=== PATIENT | male | born 1960 | race Caucasian/White ===

== ENCOUNTER → 2019-09-28 | Emergency (ER) | payer MEDICARE ==
[~2019-09-28] VITALS: Ht 170.2 cm; Wt 104.9 kg
[~2019-09-28] MED LIST: ASPI-1264 PO; ATOR10TA OGT; DOCU100C40 PO; INDO-12 PO; METO25TA6 PO; PER10325T PO; RED600TA PO; VITC500T PO; acetaminophen 325mg tablet PO ONE; iohexol 350MG/ML 100ml bottle IV ONE; ketorolac tromethamine 15mg/ml inj. IV ONE
[2019-09-28 21:36] LABS: ALANINE AMINOTRANSFERASE 43 U/L (12-78); ALBUMIN 3.2 G/DL (3.4-5.0); ALBUMIN/GLOBULIN RATIO 0.7 (1.1-1.5); ALKALINE PHOSPHATASE 102 IU/L (46-116); ANION GAP 10 (8-16); ASPARTATE AMINO TRANSFERASE 33 U/L (10-37); BILIRUBIN,TOTAL 0.6 MG/DL (0.1-1.0); BLOOD UREA NITROGEN 18 MG/DL (7-18); BUN/CREATININE RATIO 11.8 (5.4-32.0); CALCIUM 8.6 MG/DL (8.5-10.1); CHLORIDE 102 MMOL/L (99-107); CREATININE 1.52 MG/DL (0.60-1.10); GLUCOSE 215 MG/DL (70-104); POTASSIUM 3.7 MMOL/L (3.5-5.1); SODIUM 138 MMOL/L (135-145); TOTAL CARBON DIOXIDE 26.5 MMOL/L (24-32); TOTAL PROTEIN 7.6 G/DL (6.4-8.2); eGFR 48 ML/MIN
[2019-09-28 21:40] LABS: BASOPHILS % (AUTO) 0.1 % (0-1); EOSINOPHILS % (AUTO) 0.3 % (0-6); HEMATOCRIT 41.5 % (42.0-52.0); HEMOGLOBIN 14.4 g/dl (14.0-17.9); LYMPHOCYTES % (AUTO) 14.7 % (21-51); MEAN CORPUSCULAR HEMOGLOBIN 32.4 PG (27.0-31.0); MEAN CORPUSCULAR HGB CONC 34.7 g/dL (33.0-36.5); MEAN CORPUSCULAR VOLUME 93.4 FL (78-98); MEAN PLATELET VOLUME 8.2 FL (7.4-10.4); MONOCYTES # (AUTO) 0.8 X10'3 (0-0.9); MONOCYTES % (AUTO) 11.9 % (2-12); NEUTROPHILS # (AUTO) 5.2 X10'3 (1.8-7.7); PLATELET COUNT 179 X10'3 (140-440); RED BLOOD COUNT 4.44 X10'6 (4.70-6.10); RED CELL DISTRIBUTION WIDTH 13.9 % (11.5-14.5); WHITE BLOOD COUNT 7.1 X10'3 (4.5-11.0)
[2019-09-28 23:00] VITALS: BP 125/70
== END | disposition home or self-care (01) ==
LOC: ER 19:46
DX: R07.89 Other chest pain (principal); E78.00 Pure hypercholesterolemia, unspecified; Z95.1 Presence of aortocoronary bypass graft; Z79.82 Long term (current) use of aspirin; Z79.899 Other long term (current) drug therapy
CPT/HCPCS: 36415; 71045; 71275; 80053; 84484; 85025; 93005; 96374; 99284; J1885; Q9967

== ENCOUNTER 2021-11-01 18:12 | Inpatient (IN) | payer MEDICARE, MEDICAID ==
[~2021-11-01] VITALS: Ht 170.2 cm; Wt 99.2 kg
[~2021-11-01 18:12] MED LIST changes: +LOP25T PO; -METO25TA6 PO; -acetaminophen 325mg tablet PO ONE; -iohexol 350MG/ML 100ml bottle IV ONE; -ketorolac tromethamine 15mg/ml inj. IV ONE; +sevoflurane 250ml liquid IH ONE
[2021-11-01] MEDS ORDERED: acetaminophen 325mg tablet PO ONE (19:10)
[2021-11-01] MEDS ORDERED: CefTRIAXone 2gm/D5W 50ml BAG 50 ML IV ONE (19:20)
[2021-11-01] MEDS ORDERED: normal saline 1000ML IV soln IV ONE (19:20)
[2021-11-01] MEDS ORDERED: ketorolac tromethamine 15mg/ml inj. IV ONE (19:25)
[2021-11-01 19:44] LABS: BASOPHILS % (AUTO) 0.3 % (0-1); EOSINOPHILS # (AUTO) 0.1 X10'3 (0-0.9); EOSINOPHILS % (AUTO) 0.7 % (0-6); HEMATOCRIT 43.2 % (42.0-52.0); HEMOGLOBIN 14.8 g/dl (14.0-17.9); LYMPHOCYTES # (AUTO) 0.5 X10'3 (1.1-4.8); LYMPHOCYTES % (AUTO) 4.6 % (21-51); MEAN CORPUSCULAR HEMOGLOBIN 31.4 PG (27.0-31.0); MEAN CORPUSCULAR HGB CONC 34.3 g/dL (33.0-36.5); MEAN CORPUSCULAR VOLUME 91.6 FL (78-98); MEAN PLATELET VOLUME 8.6 FL (7.4-10.4); MONOCYTES # (AUTO) 0.2 X10'3 (0-0.9); MONOCYTES % (AUTO) 1.8 % (2-12); NEUTROPHILS # (AUTO) 9.4 X10'3 (1.8-7.7); NEUTROPHILS % (AUTO) 92.6 % (42-75); PLATELET COUNT 91 X10'3 (140-440); RED BLOOD COUNT 4.72 X10'6 (4.70-6.10); RED CELL DISTRIBUTION WIDTH 14.2 % (11.5-14.5); WHITE BLOOD COUNT 10.2 X10'3 (4.5-11.0)
[2021-11-01 19:54] LABS: ALANINE AMINOTRANSFERASE 41 U/L (12-78); ALBUMIN 3.2 G/DL (3.4-5.0); ALBUMIN/GLOBULIN RATIO 0.6 (1.1-1.5); ALKALINE PHOSPHATASE 110 IU/L (46-116); ANION GAP 12 (8-16); BILIRUBIN,TOTAL 1.1 MG/DL (0.1-1.0); BLOOD UREA NITROGEN 54 MG/DL (7-18); BUN/CREATININE RATIO 17.9 (5.4-32.0); CALCIUM 8.7 MG/DL (8.5-10.1); CHLORIDE 97 MMOL/L (99-107); CREATININE 3.01 MG/DL (0.60-1.10); GLUCOSE 162 MG/DL (70-104); LIPASE < 50 U/L (73-393); SODIUM 132 MMOL/L (135-145); TOTAL CARBON DIOXIDE 23.3 MMOL/L (24-32); TOTAL PROTEIN 8.4 G/DL (6.4-8.2); eGFR 21 ML/MIN
[2021-11-01 19:56] LABS: ASPARTATE AMINO TRANSFERASE 71 U/L (10-37); POTASSIUM 4.8 MMOL/L (3.5-5.1)
[2021-11-01 20:25] LABS: CLARITY,URINE SLIGHTLY CLOUDY (Clear); GLUCOSE, URINE NEGATIVE (Neg); KETONES,URINE NEGATIVE (Neg); LEUKOCYTE ESTERASE ,URINE SMALL (Neg); NITRITES, URINE POSITIVE (Neg); OCCULT BLOOD,URINE LARGE (Neg); PH,URINE 5.5 (4.8-8.0); PROTEIN,URINE 100 mg/dl (Neg)
[2021-11-01 20:26] LABS: COLOR,URINE AMBER (Yellow); UA COLLECTION TYPE CLN CATCH MIDSTREAM
[2021-11-01 20:34] LABS: AMORPHOUS URATES 2+; BACTERIA,URINE 1+ /HPF (Neg); SQUAMOUS EPITHELIAL CELL,UR FEW /LPF (FEW)
[2021-11-01 20:35] LABS: WBC,URINE 30-50 /HPF (0-4)
[2021-11-01 20:37] LABS: COARSE GRANULAR CAST 0-3 /LPF (NEGATIVE); FINE GRANULAR CAST 0-3 /LPF (NEGATIVE)
[2021-11-01] MEDS ORDERED: potassium Cl 20 mEq SR tablet PO PRN ×2 (22:50)
[2021-11-01] MEDS: normal saline 1000ml 1,000 ML IV SCH (22:50)
[2021-11-01] MEDS ORDERED: magnesium Cl slow-release 64mg tablet PO PRN (22:50)
[2021-11-01] MEDS ORDERED: morphine 2 MG/ML inj. syringe IV PRN (22:50)
[2021-11-01] MEDS ORDERED: acetaminophen 325mg tablet PO PRN (22:50)
[2021-11-01] MEDS ORDERED: ondansetron 4mg rapidly disintigrating tab PO PRN (22:50)
[2021-11-01] MEDS ORDERED: magnesium 2GM in 50ml NS 50 ML IV PRN (22:50)
[2021-11-01] MEDS ORDERED: magnesium 4gm in 100ml NS 100 ML IV PRN (22:50)
[2021-11-01] MEDS ORDERED: potassium CL 10mEq/100ml bag 100 ML IV PRN (22:50)
[2021-11-01] MEDS ORDERED: ondansetron/PF 4mg/2ml inj IV PRN (22:50)
[2021-11-01] MEDS ORDERED: magnesium hydroxide 30ml (MOM) UD suspension PO PRN (22:50)
[2021-11-01] MEDS ORDERED: bisacodyl 10mg suppository rectal RC PRN (22:50)
[2021-11-02] VITALS (26 sets, daily range): BP systolic 97–152; BP diastolic 48–83
[2021-11-02] MEDS: HYDROcodone/acetaminophen 5mg/325mg tablet PO PRN (00:28)
[2021-11-02] MEDS ORDERED: ASPI-1053 PO (05:21)
[2021-11-02] MEDS ORDERED: SERT-434 PO (05:21)
--- NOTE | 2021-11-02 06:04 | NUR ---
PAGER ID: [phone] Dr. Davila MESSAGE: Tai Resendez in ER 1 septic kidney stone, has positive blood cultures. Anaerobic sample has gram neg rods. Cassidy LUKE [id number]
[2021-11-02] MEDS: docusate sod 100mg capsule PO SCH ×2 (08:00→19:55)
[2021-11-02] MEDS: CefTRIAXone/D5W-Rocephin 1gm 50 ML IV SCH (08:11)
[2021-11-02] MEDS: K and/or MAG REPLACEMENT MC SCH ×2 (08:12→20:00)
[2021-11-02 08:33] LABS: BASOPHILS % (AUTO) 0.4 % (0-1); EOSINOPHILS % (AUTO) 0.4 % (0-6); HEMATOCRIT 35.5 % (42.0-52.0); HEMOGLOBIN 12.3 g/dl (14.0-17.9); LYMPHOCYTES # (AUTO) 0.8 X10'3 (1.1-4.8); MEAN CORPUSCULAR HEMOGLOBIN 31.1 PG (27.0-31.0); MEAN CORPUSCULAR HGB CONC 34.8 g/dL (33.0-36.5); MEAN CORPUSCULAR VOLUME 89.4 FL (78-98); MONOCYTES # (AUTO) 0.4 X10'3 (0-0.9); NEUTROPHILS # (AUTO) 9.6 X10'3 (1.8-7.7); NEUTROPHILS % (AUTO) 88.2 % (42-75); PLATELET COUNT 63 X10'3 (140-440); RED BLOOD COUNT 3.97 X10'6 (4.70-6.10); RED CELL DISTRIBUTION WIDTH 14.6 % (11.5-14.5); WHITE BLOOD COUNT 10.9 X10'3 (4.5-11.0)
[2021-11-02 08:37] LABS: ALBUMIN 2.2 G/DL (3.4-5.0); ANION GAP 7 (8-16); BLOOD UREA NITROGEN 51 MG/DL (7-18); BUN/CREATININE RATIO 21.3 (5.4-32.0); CALCIUM 7.3 MG/DL (8.5-10.1); CHLORIDE 107 MMOL/L (99-107); GLUCOSE 155 MG/DL (70-104); MAGNESIUM 1.9 MG/DL (1.5-2.4); POTASSIUM 4.1 MMOL/L (3.5-5.1); SODIUM 138 MMOL/L (135-145); eGFR 28 ML/MIN
[2021-11-02] MEDS: normal saline 1000ml 1,000 ML IV SCH ×2 (08:47→18:50)
[2021-11-02] MEDS ORDERED: hydrALAZINE 20mg/ml inj. IV PRN (09:10)
[2021-11-02] MEDS ORDERED: labetalol 20mg/4ml (5mg/ml) syringe IV PRN (09:10)
[2021-11-02] MEDS ORDERED: morphine 2 MG/ML inj. syringe IV PRN ×2 (09:10→14:25)
[2021-11-02] MEDS ORDERED: morphine 4 MG/ML inj SYRINge IV PRN ×2 (09:10→14:25)
[2021-11-02] MEDS ORDERED: ringers solution, lacted 1,000 ML IV ONE (09:10)
[2021-11-02] MEDS ORDERED: ringers solution, lacted 1,000 ML IV SCH ×2 (09:10→14:25)
[2021-11-02] MEDS ORDERED: fentaNYL/PF 50MCG/1 ML 2ML syringe IV PRN ×2 (09:10)
[2021-11-02] MEDS ORDERED: ondansetron/PF 4mg/2ml inj IV PRN ×2 (09:10→14:25)
[2021-11-02 09:52] LABS: PLATELET ESTIMATE DECREASED; TOTAL CELLS COUNTED 100
[2021-11-02 09:53] LABS: ANISOCYTOSIS FEW; TOXIC GRANULATION 3+
[2021-11-02] MEDS: morphine 2 MG/ML inj. syringe IV PRN (10:56)
[2021-11-02] MEDS ORDERED: iohexol 300 MG/1 ML 50ml polymer ONE ×2 (11:03→13:07)
--- NOTE | 2021-11-02 11:13 | NUR ---
OR HERE TO TAKE PT
[2021-11-02] MEDS ORDERED: midazolam 1 mg/ML 2ml injection ONE (11:47)
[2021-11-02] MEDS ORDERED: fentaNYL/PF 50MCG/1 ML 2ML syringe ONE (11:47)
[2021-11-02] MEDS ORDERED: LIDOcaine 2% (20mg/ml) 5ml vial ONE (11:49)
[2021-11-02] MEDS ORDERED: rocuronium 10mg/ml inj IV ONE (11:49)
[2021-11-02] MEDS ORDERED: propofol inj 20 ML IV ONE (11:49)
[2021-11-02] MEDS ORDERED: iohexol 180mg/ml 20ml inj ONE (13:07)
[2021-11-02] MEDS ORDERED: sugammadex 200mg/2ml injection IV ONE (13:51)
--- NOTE | 2021-11-02 14:04 | NUR ---
Received from OR via , accompanied by Anesthesiologist DR CLARK and report given by Anesthesiolgist. PT PRESENTS WITH 20 G RIHT AC, PT SHIVERING UPPON ARIVAL, MONITOR PLACED WITH HR IN 140'S. DR CLARK NOTIFIED AND AT BEDSIDE TO [place] PT. DEMEROL AND BENADRYL GIVEN, SEE EMR. Addendum: 11/02/21 at 1451 by Brianna Rod RN, RN Amended: Links added.
[2021-11-02] MEDS ORDERED: meperidine/PF 25mg/ml syringe IV ONE ×2 (14:10→14:40)
[2021-11-02] MEDS ORDERED: diphenhydrAMINE 50 mg/ml inj ONE (14:19)
[2021-11-02] MEDS ORDERED: meperidine/PF 25mg/ml syringe IV PRN ×3 (14:25)
[2021-11-02] MEDS ORDERED: proCHLORperazine 10 MG/2 ml inj IV PRN (14:25)
--- NOTE | 2021-11-02 14:40 | NUR ---
PER DR CLARK PT TO GET 500ML BOLUS OF LR, HR 130'S Addendum: 11/02/21 at 1452 by Brianna Rod RN, RN Amended: Links added.
[2021-11-02 14:45] LABS: BASOPHILS % (AUTO) 0.6 % (0-1); EOSINOPHILS % (AUTO) 0.7 % (0-6); HEMATOCRIT 40.9 % (42.0-52.0); HEMOGLOBIN 13.8 g/dl (14.0-17.9); LYMPHOCYTES # (AUTO) 0.6 X10'3 (1.1-4.8); LYMPHOCYTES % (AUTO) 29.2 % (21-51); MEAN CORPUSCULAR HEMOGLOBIN 30.9 PG (27.0-31.0); MEAN CORPUSCULAR HGB CONC 33.8 g/dL (33.0-36.5); MEAN CORPUSCULAR VOLUME 91.4 FL (78-98); MONOCYTES % (AUTO) 1.4 % (2-12); NEUTROPHILS # (AUTO) 1.4 X10'3 (1.8-7.7); NEUTROPHILS % (AUTO) 68.1 % (42-75); PLATELET COUNT 64 X10'3 (140-440); RED BLOOD COUNT 4.47 X10'6 (4.70-6.10); RED CELL DISTRIBUTION WIDTH 15.1 % (11.5-14.5); WHITE BLOOD COUNT 2.1 X10'3 (4.5-11.0)
[2021-11-02 15:02] LABS: ALANINE AMINOTRANSFERASE 30 U/L (12-78); ALBUMIN 2.6 G/DL (3.4-5.0); ALBUMIN/GLOBULIN RATIO 0.6 (1.1-1.5); ALKALINE PHOSPHATASE 105 IU/L (46-116); ANION GAP 7 (8-16); ASPARTATE AMINO TRANSFERASE 42 U/L (10-37); BILIRUBIN,TOTAL 0.7 MG/DL (0.1-1.0); BLOOD UREA NITROGEN 49 MG/DL (7-18); BUN/CREATININE RATIO 21.1 (5.4-32.0); CHLORIDE 107 MMOL/L (99-107); CREATININE 2.32 MG/DL (0.60-1.10); GLUCOSE 112 MG/DL (70-104); POTASSIUM 4.7 MMOL/L (3.5-5.1); SODIUM 139 MMOL/L (135-145); TOTAL CARBON DIOXIDE 24.7 MMOL/L (24-32); TOTAL PROTEIN 7.2 G/DL (6.4-8.2); eGFR 29 ML/MIN
[2021-11-02 15:34] LABS: TOTAL CELLS COUNTED 100
[2021-11-02 15:35] LABS: PLATELET ESTIMATE DECREASED
--- NOTE | 2021-11-02 18:54 | NUR ---
Report called to receiving nurse OLVIN LUKE. Transferred via GURNEY TO [address] WITH BAGS OF PT BELONGINGS. Special Issues communicated to receiving nurse. Addendum: 11/02/21 at 1859 by Brianna Rod RN, RN Amended: Links added.
[2021-11-02] MEDS ORDERED: FLU VACC QS2021-22(6MOS UP)/PF 60 MCG/0.5 ML SYRINGE IM ONE (20:25)
[2021-11-03] VITALS: BP 102/58
[2021-11-03] MEDS: normal saline 1000ml 1,000 ML IV SCH ×2 (02:58→15:03)
[2021-11-03] MEDS ORDERED: famotidine 20mg tablet PO ONE (06:00)
[2021-11-03 06:13] LABS: BASOPHILS % (AUTO) 0.1 % (0-1); EOSINOPHILS % (AUTO) 0.4 % (0-6); HEMATOCRIT 34.4 % (42.0-52.0); HEMOGLOBIN 11.6 g/dl (14.0-17.9); LYMPHOCYTES # (AUTO) 0.6 X10'3 (1.1-4.8); LYMPHOCYTES % (AUTO) 8.6 % (21-51); MEAN CORPUSCULAR HEMOGLOBIN 30.5 PG (27.0-31.0); MEAN CORPUSCULAR HGB CONC 33.7 g/dL (33.0-36.5); MEAN CORPUSCULAR VOLUME 90.7 FL (78-98); MEAN PLATELET VOLUME 9.5 FL (7.4-10.4); MONOCYTES # (AUTO) 0.5 X10'3 (0-0.9); NEUTROPHILS # (AUTO) 5.7 X10'3 (1.8-7.7); NEUTROPHILS % (AUTO) 83.9 % (42-75); PLATELET COUNT 52 X10'3 (140-440); RED BLOOD COUNT 3.79 X10'6 (4.70-6.10); RED CELL DISTRIBUTION WIDTH 15.1 % (11.5-14.5); WHITE BLOOD COUNT 6.8 X10'3 (4.5-11.0)
[2021-11-03 06:16] LABS: ANION GAP 7 (8-16); BLOOD UREA NITROGEN 41 MG/DL (7-18); BUN/CREATININE RATIO 20.9 (5.4-32.0); CALCIUM 7.6 MG/DL (8.5-10.1); CHLORIDE 108 MMOL/L (99-107); CREATININE 1.96 MG/DL (0.60-1.10); GLUCOSE 140 MG/DL (70-104); MAGNESIUM 2.1 MG/DL (1.5-2.4); POTASSIUM 4.5 MMOL/L (3.5-5.1); SODIUM 138 MMOL/L (135-145); TOTAL CARBON DIOXIDE 22.7 MMOL/L (24-32); eGFR 35 ML/MIN
[2021-11-03] MEDS: HYDROcodone/acetaminophen 5mg/325mg tablet PO PRN ×3 (06:45→19:31)
--- NOTE | 2021-11-03 06:46 | NUR ---
Patient in room [facility]. I have received report from Lani LUKE Traveler and had the opportunity to ask questions and assume patient care.
[2021-11-03] MEDS: morphine 2 MG/ML inj. syringe IV PRN (06:50)
[2021-11-03 07:00] VITALS: BP 100/57
[2021-11-03] MEDS: docusate sod 100mg capsule PO SCH ×2 (08:00→19:30)
[2021-11-03] MEDS: K and/or MAG REPLACEMENT MC SCH ×2 (08:00→20:00)
[2021-11-03] MEDS: tamsulosin 0.4mg capsule PO SCH (08:04)
[2021-11-03] MEDS: oxybutynin 5mg tablet PO PRN (08:04)
[2021-11-03] MEDS: CefTRIAXone/D5W-Rocephin 1gm 50 ML IV SCH (08:05)
[2021-11-03] MEDS ORDERED: FLU VACC QS2021-22(6MOS UP)/PF 60 MCG/0.5 ML SYRINGE IM ONE (10:00)
[2021-11-03 11:00] VITALS: BP 109/62
[2021-11-03] MEDS ORDERED: ATOR40TA72 PO (11:01)
[2021-11-03] MEDS ORDERED: METF-900 PO (11:01)
[2021-11-03] MEDS ORDERED: LISI10TA27 PO (11:01)
[2021-11-03] MEDS: phenazopyridine 100mg tablet PO PRN (12:59)
--- NOTE | 2021-11-03 18:11 | NUR ---
Problems reprioritized. Patient report given, questions answered & plan of care reviewed with Nunu Licea Traveler.
[2021-11-03] MEDS: lisinopril 10 MG tablet PO SCH (18:15)
[2021-11-03 20:00] VITALS: BP 102/58
[2021-11-04] VITALS: BP 103/48
--- NOTE | 2021-11-04 00:10 | NUR ---
Student documentation: I have reviewed interventions, assessments performed and documented by CHARLES Black [facility].
[2021-11-04] MEDS: normal saline 1000ml 1,000 ML IV SCH (01:00)
[2021-11-04 06:02] LABS: BASOPHILS % (AUTO) 0.1 % (0-1); EOSINOPHILS % (AUTO) 0.6 % (0-6); HEMATOCRIT 34.1 % (42.0-52.0); HEMOGLOBIN 11.4 g/dl (14.0-17.9); LYMPHOCYTES # (AUTO) 0.6 X10'3 (1.1-4.8); LYMPHOCYTES % (AUTO) 11.7 % (21-51); MEAN CORPUSCULAR HEMOGLOBIN 30.5 PG (27.0-31.0); MEAN CORPUSCULAR HGB CONC 33.5 g/dL (33.0-36.5); MEAN CORPUSCULAR VOLUME 91.2 FL (78-98); MEAN PLATELET VOLUME 9.9 FL (7.4-10.4); MONOCYTES # (AUTO) 0.6 X10'3 (0-0.9); MONOCYTES % (AUTO) 11.8 % (2-12); NEUTROPHILS # (AUTO) 3.8 X10'3 (1.8-7.7); NEUTROPHILS % (AUTO) 75.8 % (42-75); PLATELET COUNT 72 X10'3 (140-440); RED BLOOD COUNT 3.74 X10'6 (4.70-6.10); RED CELL DISTRIBUTION WIDTH 15.5 % (11.5-14.5); WHITE BLOOD COUNT 5.1 X10'3 (4.5-11.0)
[2021-11-04] MEDS: HYDROcodone/acetaminophen 5mg/325mg tablet PO PRN (06:04)
[2021-11-04 06:34] LABS: ALBUMIN 1.9 G/DL (3.4-5.0); ANION GAP 7 (8-16); BLOOD UREA NITROGEN 31 MG/DL (7-18); BUN/CREATININE RATIO 22.5 (5.4-32.0); CALCIUM 7.2 MG/DL (8.5-10.1); CHLORIDE 111 MMOL/L (99-107); CREATININE 1.38 MG/DL (0.60-1.10); GLUCOSE 105 MG/DL (70-104); MAGNESIUM 2.2 MG/DL (1.5-2.4); POTASSIUM 4.6 MMOL/L (3.5-5.1); SODIUM 140 MMOL/L (135-145); TOTAL CARBON DIOXIDE 21.8 MMOL/L (24-32); eGFR 53 ML/MIN
--- NOTE | 2021-11-04 06:49 | NUR ---
Patient in room [facility]. I have received report from Nunu LUKE and had the opportunity to ask questions and assume patient care.
[2021-11-04] MEDS ORDERED: acetaminophen 325mg tablet PO PRN (07:45)
[2021-11-04] MEDS ORDERED: sertraline 50mg tablet PO SCH (08:00)
[2021-11-04] MEDS ORDERED: atorvastatin 20mg tablet PO SCH (08:00)
[2021-11-04] MEDS: tamsulosin 0.4mg capsule PO SCH (08:30)
[2021-11-04] MEDS: docusate sod 100mg capsule PO SCH (08:30)
[2021-11-04] MEDS: lisinopril 10 MG tablet PO SCH (08:32)
[2021-11-04] MEDS: phenazopyridine 100mg tablet PO PRN (08:33)
[2021-11-04] MEDS: oxybutynin 5mg tablet PO PRN (08:33)
[2021-11-04] MEDS: CefTRIAXone/D5W-Rocephin 1gm 50 ML IV SCH (09:15)
[2021-11-04] MEDS ORDERED: tamsulosin capsule PO (09:52)
[2021-11-04] MEDS ORDERED: LEVO500T90 PO (09:52)
[2021-11-04 10:38] VITALS: BP 106/58
[2021-11-04] MEDS ORDERED: PHEN-786 PO (11:26)
[2021-11-04] MEDS ORDERED: OXYB5TAB16 PO (11:26)
[2021-11-04] MEDS ORDERED: HYDR-3964 PO (11:26)
--- NOTE | 2021-11-04 13:30 | NUR ---
pt Dc to home with . Pt is A & O x4 and in no apparent distress. pt verbalizes understanding of all DC orders. pt educated on DM, respiratory issues ( need a c-pap), O2 usage for night use. pt is to follow up with PCP in [address] Eason in 10 days. Pt DC with PO antibiotics since he is positive for MDRO in blood and urine. pt able to get dressed and packed his belongings. DC orders given to as well over the phone. Pt ask many questions and was happy to learn more. many printout given on education for many issues. Pt wheeled to the front where pick him up.
[2021-11-04] MEDS ORDERED: lactobacillus rhamnosus 10,000 MMU CELLS/CAPSULE PO SCH (20:00)
== END 2021-11-04 13:25 | disposition home or self-care (01) | DRG 853 ==
LOC: ER 18:12 → ED HOLD 22:48 → EDBEDREQSVC 11-02 04:23 → SUR 3N 11-02 19:00
PROVIDERS: ADMIT Internal Medicine; ATTEND Internal Medicine
PROC: BT141ZZ Fluoroscopy of Kidneys, Ureters and Bladder using Low Osmolar Contrast (ICD-10-PCS; 2021-11-02)
PROC: 3E02340 Introduction of Influenza Vaccine into Muscle, Percutaneous Approach (ICD-10-PCS; 2021-11-02)
PROC: 0T788DZ Dilation of Bilateral Ureters with Intraluminal Device, Via Natural or Artificial Opening Endoscopic (ICD-10-PCS; principal; 2021-11-02 13:05)
DX: A41.9 Sepsis, unspecified organism (principal); N17.0 Acute kidney failure with tubular necrosis; N13.6 Pyonephrosis; D61.818 Other pancytopenia; Z20.822 Contact with and (suspected) exposure to COVID-19; E78.00 Pure hypercholesterolemia, unspecified; M10.9 Gout, unspecified; K21.9 Gastro-esophageal reflux disease without esophagitis; E78.5 Hyperlipidemia, unspecified; I25.10 Atherosclerotic heart disease of native coronary artery without angina pectoris; R65.20 Severe sepsis without septic shock; Z82.0 Family history of epilepsy and other diseases of the nervous system; Z95.1 Presence of aortocoronary bypass graft; Z23 Encounter for immunization; Z82.49 Family history of ischemic heart disease and other diseases of the circulatory system; Z79.899 Other long term (current) drug therapy
CPT/HCPCS: 36415; 71045; 74176; 74420; 76000; 80048; 80053; 81001; 82948; 83605; 83690; 83735; 84145; 85007; 85025; 87040; 87077; 87081; 87088; 87186; 87635; 93005; 96365; 96366; 96375; 99285; A4618; C1758; C1769; C2617; G0378; J0696; J1200; J1885; J2175; J2250; J2270; J2405; J2704; J3010; J3490; J7030; J7120; Q9965; Q9967

== ENCOUNTER 2022-12-29 08:42 | Day surgery (SDC) | payer BC, MEDICAID ==
[2022-12-28 14:32] LABS: BASOPHILS # (AUTO) 0.1 X10'3 (0-0.2); BASOPHILS % (AUTO) 1.2 % (0-1); EOSINOPHILS # (AUTO) 0.2 X10'3 (0-0.9); EOSINOPHILS % (AUTO) 4.5 % (0-6); HEMATOCRIT 45.4 % (42.0-52.0); HEMOGLOBIN 15.2 g/dl (14.0-17.9); LYMPHOCYTES # (AUTO) 1.6 X10'3 (1.1-4.8); MEAN CORPUSCULAR HEMOGLOBIN 30.7 PG (27.0-31.0); MEAN CORPUSCULAR HGB CONC 33.6 g/dL (33.0-36.5); MEAN CORPUSCULAR VOLUME 91.6 FL (78-98); MEAN PLATELET VOLUME 7.5 FL (7.4-10.4); MONOCYTES # (AUTO) 0.5 X10'3 (0-0.9); MONOCYTES % (AUTO) 8.8 % (2-12); NEUTROPHILS # (AUTO) 2.9 X10'3 (1.8-7.7); NEUTROPHILS % (AUTO) 54.5 % (42-75); PLATELET COUNT 163 X10'3 (140-440); RED BLOOD COUNT 4.95 X10'6 (4.70-6.10); RED CELL DISTRIBUTION WIDTH 14.9 % (11.5-14.5); WHITE BLOOD COUNT 5.3 X10'3 (4.5-11.0)
[2022-12-28 14:39] LABS: ANION GAP 7 (8-16); BLOOD UREA NITROGEN 10 MG/DL (7-18); BUN/CREATININE RATIO 9.8 (10.0-20.0); CHLORIDE 104 MMOL/L (99-107); CREATININE 1.02 MG/DL (0.60-1.10); GLUCOSE 106 MG/DL (70-104); POTASSIUM 4.1 MMOL/L (3.5-5.1); SODIUM 140 MMOL/L (135-145); TOTAL CARBON DIOXIDE 29.5 MMOL/L (24-32); eGFR 74 ML/MIN
[2022-12-28 14:43] LABS: APTT 25 SECONDS (22-32)
[2022-12-29] VITALS (10 sets, daily range): BP systolic 114–136; BP diastolic 49–72
[~2022-12-29] VITALS: Ht 170.2 cm; Wt 99.7 kg
[~2022-12-29 08:42] MED LIST changes: +ASPI-1053 PO; -ASPI-1264 PO; -ATOR10TA OGT; +ATOR40TA72 PO; -DOCU100C40 PO; +HYDR-3964 PO; -INDO-12 PO; +LISI10TA27 PO; -LOP25T PO; +METF-900 PO; +OXYB5TAB16 PO; -PER10325T PO; +PHEN-786 PO; -RED600TA PO; +SERT-434 PO; -VITC500T PO; -sevoflurane 250ml liquid IH ONE; +tamsulosin capsule PO
[2022-12-29] MEDS ORDERED: METO-395 PO (09:04)
[2022-12-29] MEDS ORDERED: ISOS30TA84 PO (09:04)
[2022-12-29] MEDS ORDERED: normal saline 1,000 ML IV SCH (09:05)
[2022-12-29] MEDS ORDERED: LORazepam 0.5 MG tablet PO PRN (09:05)
[2022-12-29] MEDS ORDERED: diphenhydrAMINE 25mg capsule PO PRN (09:05)
[2022-12-29] MEDS ORDERED: fentaNYL/PF 50MCG/1 ML 2ML syringe ONE (12:26)
[2022-12-29] MEDS ORDERED: midazolam 1 mg/ML 2ml injection ONE (12:26)
[2022-12-29] MEDS ORDERED: nitroGLYCERIN-Tridil 50MG/D5W 250 ML IV ONE (12:30)
[2022-12-29] MEDS ORDERED: iohexol 350 MG/ML 50ML vial IV ONE (13:20)
[2022-12-29 13:52] LABS: ISTAT HGB ART 14.3 g/dl (14.0-17.9); ISTAT Hct ART 42 %PCV (42-52); ISTAT O2 SATURATION ARTERIAL 94 % (95-98); ISTAT SOURCE ART
[2022-12-29] MEDS ORDERED: HYDROcodone/acetaminophen 5mg/325mg tablet PO PRN (14:20)
[2022-12-29] MEDS ORDERED: HYDROcodone/acetaminophen 10/325mg tab PO PRN (14:20)
[2022-12-29 15:14] LABS: ISTAT Hct MIX 42 %PCV (42-52); ISTAT O2 SATURATION MIX VENOUS 64 % (60-80); ISTAT SOURCE OTHER
== END 2022-12-29 18:50 | disposition home or self-care (01) ==
LOC: SSTAY O 08:42
PROVIDERS: ATTEND Internal Medicine Cardiovascular Disease
DX: R94.39 Abnormal result of other cardiovascular function study (principal); I25.10 Atherosclerotic heart disease of native coronary artery without angina pectoris; K21.9 Gastro-esophageal reflux disease without esophagitis; E78.5 Hyperlipidemia, unspecified; M10.9 Gout, unspecified; I25.2 Old myocardial infarction; E11.9 Type 2 diabetes mellitus without complications; E66.3 Overweight; Z68.33 Body mass index [BMI] 33.0-33.9, adult; I10 Essential (primary) hypertension; G47.39 Other sleep apnea; Z95.1 Presence of aortocoronary bypass graft; Z98.890 Other specified postprocedural states; Z79.01 Long term (current) use of anticoagulants; Z79.899 Other long term (current) drug therapy
CPT/HCPCS: 36415; 76937; 80048; 82803; 85014; 85025; 85610; 85730; 93005; 93461; 99152; 99153; C1751; C1760; J2250; J3010; J3490; J7030; Q0163; Q9967; A4615; A6258; C1725